=== PATIENT | female | born 1960 | race African-American/Black ===

== ENCOUNTER 2017-01-18 13:14 | Emergency (ER) | payer MEDICAID ==
[~2017-01-18] VITALS: Ht 170.2 cm; Wt 85.5 kg
[~2017-01-18 13:14] MED LIST: CARV3 PO; VALS40TA4 PO
[2017-01-18] MEDS ORDERED: AMLO-511 PO (13:46)
[2017-01-18] MEDS ORDERED: SERT50TA12 PO (13:46)
[2017-01-18] MEDS ORDERED: OXYB5 PO (13:46)
[2017-01-18] MEDS ORDERED: CARV25 PO (13:46)
[2017-01-18 14:27] LABS: BASOPHILS # (AUTO) 0.15 K/uL (0.00-0.20); BASOPHILS % (AUTO) 2.6 % (0.0-2.0); EOSINOPHILS # (AUTO) 0.16 K/uL (0.00-0.70); EOSINOPHILS % (AUTO) 2.81 % (1.0-6.0); HEMATOCRIT 31.1 % (36-46); HEMOGLOBIN 10.1 g/dL (12.0-16.0); LYMPHOCYTES # (AUTO) 2.2 K/uL (1.0-4.8); LYMPHOCYTES % (AUTO) 37.5 % (22.0-44.0); MEAN CORPUSCULAR HEMOGLOBIN 28.3 pg (26.0-34.0); MEAN CORPUSCULAR HGB CONC 32.4 G/dL (31.0-37.0); MEAN CORPUSCULAR VOLUME 87 fL (80-100); MONOCYTES # (AUTO) 0.6 K/uL (0.1-1.0); NEUTROPHILS # (AUTO) 2.8 K/uL (1.8-7.7); NEUTROPHILS % (AUTO) 47.1 % (40.0-70.0); PLATELET COUNT (AUTO) 204 K/uL (150-450); RED BLOOD CELL COUNT(AUTO) 3.55 MIL/uL (4.00-5.20); RED CELL DISTRIBUTION WIDTH 14.4 % (11.5-14.5); WHITE BLOOD COUNT (AUTO) 5.9 K/uL (4.5-11.0)
[2017-01-18 14:49] LABS: PROTHROMBIN TIME 10.5 SEC (9.4-11.6)
[2017-01-18 14:58] VITALS: BP 130/68
== END 2017-01-18 15:23 | disposition home or self-care (01) ==
LOC: EMS 13:16
DX: M79.1 Myalgia (principal); R04.2 Hemoptysis; J40 Bronchitis, not specified as acute or chronic; I51.7 Cardiomegaly; I11.0 Hypertensive heart disease with heart failure; I50.9 Heart failure, unspecified; Z87.891 Personal history of nicotine dependence
CPT/HCPCS: 71020; 93005; 99285

== ENCOUNTER 2017-10-30 15:12 | Emergency (ER) | payer MEDICAID ==
[~2017-10-30] VITALS: Ht 172.7 cm; Wt 100.0 kg
[~2017-10-30 15:12] MED LIST changes: +AMLO-511 PO; +CARV25 PO; -CARV3 PO; +OXYB5 PO; +SERT50TA12 PO; -VALS40TA4 PO
[2017-10-30] MEDS ORDERED: KETOROLAC TROMETHAMINE 30 MG/ML VIAL IVP ONE (16:30)
[2017-10-30] MEDS ORDERED: ONDANSETRON HCL 4 MG/2 ML VIAL IVP ONE (16:30)
[2017-10-30] MEDS ORDERED: SODIUM CHLORIDE 0.9% 500 ML IV ONE (16:30)
[2017-10-30 16:51] LABS: BASOPHILS % (AUTO) 0.5 % (0.0-2.0); EOSINOPHILS % (AUTO) 0.5 % (1.0-6.0); HEMATOCRIT 39.6 % (36-46); HEMOGLOBIN 12.5 g/dL (12.0-16.0); LYMPHOCYTES # (AUTO) 2.3 K/uL (1.0-4.8); LYMPHOCYTES % (AUTO) 18.1 % (22.0-44.0); MEAN CORPUSCULAR HEMOGLOBIN 26.1 pg (26.0-34.0); MEAN CORPUSCULAR HGB CONC 31.6 G/dL (31.0-37.0); MEAN CORPUSCULAR VOLUME 83 fL (80-100); MONOCYTES # (AUTO) 1.1 K/uL (0.1-1.0); MONOCYTES % (AUTO) 9.2 % (2.0-9.0); NEUTROPHILS % (AUTO) 71.7 % (40.0-70.0); PLATELET COUNT (AUTO) 225 K/uL (150-450); RED BLOOD CELL COUNT(AUTO) 4.79 MIL/uL (4.00-5.20); RED CELL DISTRIBUTION WIDTH 15.5 % (11.5-14.5)
[2017-10-30 17:01] LABS: CALCIUM, TOTAL 9.6 mg/dL (8.8-10.5); CREATININE 1.44 mg/dL (0.60-1.30); POTASSIUM 5.1 mmol/L (3.5-5.1)
[2017-10-30 17:10] LABS: ALBUMIN 3.9 g/dL (3.4-5.0); BILIRUBIN,TOTAL 0.8 mg/dL (0.1-1.0); TOTAL PROTEIN, SERUM 8.9 g/dL (6.4-8.2)
[2017-10-30 17:56] LABS: APPEARANCE,URINE CLOUDY (CLEAR); BILIRUBIN,URINE NEGATIVE (NEGATIVE); GLUCOSE, URINE (UA) NEGATIVE (NEGATIVE); KETONES,URINE TRACE mg/dL (NEGATIVE); LEUKOCYTE ESTERASE ,URINE MODERATE (NEGATIVE); NITRATE,URINE POSITIVE (NEGATIVE); OCCULT BLOOD,URINE SMALL (NEGATIVE); PH,URINE 5.5 (5.0-8.0); PROTEIN,URINE POS 1+ (NEGATIVE)
[2017-10-30 18:00] LABS: AMPHET/METH SCREEN,URINE POSITIVE (NEGATIVE); BARBITURATE SCREEN, URINE NEGATIVE (NEGATIVE); BENZODIAZEPINES SCREEN,URINE POSITIVE (NEGATIVE); CANNABINOID SCREEN,URINE POSITIVE (NEGATIVE); COCAINE SCREEN,URINE NEGATIVE (NEGATIVE); METHADONE SCREEN, URINE NEGATIVE (NEGATIVE); OPIATE SCREEN,URINE POSITIVE (NEGATIVE)
[2017-10-30 18:02] LABS: PHENCYCLIDINE SCREEN,URINE NEGATIVE (NEGATIVE)
[2017-10-30 18:33] LABS: BACTERIA,URINE Many /HPF (None Seen)
[2017-10-30 18:34] LABS: SQUAMOUS EPITHELIAL CELL,UR Moderate /LPF (None Seen); WBC,URINE >100 /HPF (0-5)
[2017-10-30 19:00] VITALS: BP 148/82
== END 2017-10-30 19:00 | disposition left against medical advice (07) ==
LOC: EMS 15:14
DX: J02.9 Acute pharyngitis, unspecified (principal); I11.0 Hypertensive heart disease with heart failure; I50.9 Heart failure, unspecified; R11.2 Nausea with vomiting, unspecified; F32.9 Major depressive disorder, single episode, unspecified; F19.10 Other psychoactive substance abuse, uncomplicated; Z79.899 Other long term (current) drug therapy; Z87.891 Personal history of nicotine dependence
CPT/HCPCS: 36415; 80053; 80307; 81001; 84484; 85025; 87086; 87430; 93005; 96361; 96374; 96375; 99285; J1885; J2405; J7030

== ENCOUNTER 2018-12-03 13:55 | Day surgery (SDC) | payer MEDICAID ==
[~2018-12-03] VITALS: Ht 170.2 cm; Wt 102.3 kg
[~2018-12-03 13:55] MED LIST changes: -AMLO-511 PO; +ASPI-1182 PO; +IVAB5TAB PO; +LOSA25TA41 PO; -SERT50TA12 PO; +SODIUM CHLORIDE 0.9% 1,000 ML IV ONE; +SPIR25 PO
[2018-12-03] MEDS ORDERED: LIDOCAINE/PF 2% 5 ML VIAL IM ONE (13:56)
[2018-12-03] MEDS ORDERED: PROPOFOL 1% 20 ML VIAL IVP ONE (13:56)
[2018-12-03] MEDS ORDERED: FentaNYL CITRATE-PF 100 MCG/2 ML VIAL IVP PRN (16:15)
[2018-12-03] MEDS ORDERED: MEPERIDINE-PF 25 MG/ML VIAL IVP PRN (16:15)
[2018-12-03] MEDS ORDERED: HYDROmorphone 2 MG/ML SYRINGE IVP PRN (16:15)
[2018-12-03] MEDS ORDERED: OXYGEN THERAPY IH SCH (20:00)
== END 2018-12-03 17:05 | disposition home or self-care (01) ==
LOC: SURGERY 13:55
PROVIDERS: ATTEND Internal Medicine Gastroenterology
DX: D64.9 Anemia, unspecified (principal); K64.8 Other hemorrhoids; K62.5 Hemorrhage of anus and rectum; I11.0 Hypertensive heart disease with heart failure; I50.9 Heart failure, unspecified; E66.01 Morbid (severe) obesity due to excess calories; E78.5 Hyperlipidemia, unspecified; F32.9 Major depressive disorder, single episode, unspecified; Z86.010 Personal history of colon polyps; Z87.891 Personal history of nicotine dependence; Z72.89 Other problems related to lifestyle; Z79.899 Other long term (current) drug therapy; Z79.82 Long term (current) use of aspirin; Z95.810 Presence of automatic (implantable) cardiac defibrillator; Z98.890 Other specified postprocedural states
CPT/HCPCS: 45378; 93005; J2704; J3490; J7030